=== PATIENT | female | born 1990 | race Caucasian/White ===

== ENCOUNTER 2022-06-25 22:50 | Emergency (ER) | payer SELFPAY ==
[~2022-06-25] VITALS: Ht 154.9 cm; Wt 84.4 kg
[~2022-06-25 22:50] MED LIST: DEPO
[2022-06-25 22:53] VITALS: BP 107/51
== END 2022-06-25 23:00 | disposition left against medical advice (07) ==
LOC: ER 22:50
DX: Z53.21 Procedure and treatment not carried out due to patient leaving prior to being seen by health care provider (principal)